=== PATIENT | female | born 1990 | race Caucasian/White ===

== ENCOUNTER 2016-08-25 08:32 | Emergency (ER) | payer MEDICAID ==
[~2016-08-25] VITALS: Ht 170.2 cm; Wt 91.6 kg
[2016-08-25 11:13] VITALS: BP 103/64
== END 2016-08-25 11:37 | disposition home or self-care (01) ==
LOC: ED 08:32
DX: J03.90 Acute tonsillitis, unspecified (principal); R11.10 Vomiting, unspecified; H92.03 Otalgia, bilateral
CPT/HCPCS: J0696; J1100; Q0162

== ENCOUNTER 2019-01-07 23:48 | Emergency (ER) | payer OTHER ==
[~2019-01-07] VITALS: Ht 170.2 cm; Wt 93.0 kg
[2019-01-07 23:56] VITALS: Ht 170.2 cm; Wt 93.0 kg
[2019-01-08 01:02] LABS: BASOPHIL % 0.4 % (0-2); PLATELET COUNT 330 x10^3mcL (130-400); RED CELL DISTRIBUTION WIDTH 12.4 % (11.5-14.5)
[2019-01-08 01:22] LABS: CALCIUM 8.2 mg/dL (8.5-10.1); CARBON DIOXIDE 22.8 mmol/L (21-32); CHLORIDE SERUM 105 mmol/L (98-107); CREATININE SERUM 0.8 mg/dL (0.6-1.0); GFR1 > 60 mL/min; GLUCOSE SERUM 94 mg/dL (74-106); POTASSIUM SERUM 3.7 mmol/L (3.5-5.1); SODIUM SERUM 140 mmol/L (136-145)
[2019-01-08 01:29] LABS: ALBUMIN 3.4 g/dL (3.4-5.0); ALKALINE PHOSPHATASE 64 U/L (46-116); ALT/SGPT 41 U/L (14-59); AST/SGOT 21 U/L (15-37); LIPASE 142 IU/L (73-393); TOTAL PROTEIN, SERUM 7.5 g/dL (6.4-8.2)
[2019-01-08 02:57] VITALS: BP 100/48
== END 2019-01-08 02:57 | disposition home or self-care (01) ==
LOC: ED 23:48
PROVIDERS: Emergency Medicine
DX: K52.9 Noninfective gastroenteritis and colitis, unspecified (principal)
CPT/HCPCS: J1885; J2405; J7030